=== PATIENT | male | born 1960 | race Caucasian/White ===

== ENCOUNTER 2017-01-11 10:55 | Emergency (ER) | payer OTHER ==
[~2017-01-11] VITALS: Ht 182.9 cm; Wt 94.0 kg
[~2017-01-11 10:55] MED LIST: DIPH25 PO; INTE200T2 OR; PARO20 PO; TRUVTAB2 OR; [UNRECOGNIZED DRUG - CODE]; [UNRECOGNIZED DRUG - CODE] PO
[2017-01-11 11:00] VITALS: BP 138/98; PULSE 128; RESP 16; O2SAT 98
[2017-01-11] MEDS ORDERED: ATOR20TA15 PO (11:13)
[2017-01-11] MEDS ORDERED: PAXI20TA PO (11:13)
[2017-01-11] MEDS ORDERED: ATRITAB PO (11:13)
--- NOTE | 2017-01-11 11:28 | PD ---
HPI Chief Complaint: Psychiatric Symptoms Time Seen by Provider: 11:28 Travel History International Travel<30 days: No Contact w/Intl Traveler<30days: No Traveled to known affect area: No History of Present Illness HPI 56-year-old male with a history of substance abuse and HIV is brought to the emergency department under Gu[employer] act for evaluation of substance abuse. Per the Guvera act report the patient's neighbors called the police as he makes a lot of noise with banging on the correa, moaning and groaning. Apparently when police arrived the patient admitted to [facility]. States he has been doing this for several years now. States he also drinks alcohol regularly, not daily. He denies any suicidal or homicidal ideations. Denies any attempts to harm himself. States that he does take antiretrovirals and follows up with Dr. Villafuerte for ID, unsure of his CD4 count but states his viral load is undetectable. He admits to a previous history of IV methamphetamine abuse, last used 6 months ago. Denies any medical complaints. Denies any chest pain, shortness of breath, lightheadedness, dizziness, nausea, vomiting, abdominal pain. No other complaints. PFSH Past Medical History High Cholesterol: Yes Diminished Hearing: No Hepatitis: Yes (HEP C cured) Immune Disorder: Yes (HIV) Integumentary: Yes (MRSA) Influenza Vaccination: No Social History Alcohol Use: Yes (occas) Tobacco Use: No Substance Use: Yes (hx of ivda; now huffer) Allergies-Medications (Allergen,Severity, Reaction): Coded Allergies: No Known Allergies (Verified , 01/11/17) Reported Meds & Prescriptions Reported Meds & Active Scripts Active Reported Paxil (Paroxetine HCl) 20 Mg Tab 20 Mg PO DAILY Atorvastatin (Atorvastatin Calcium) 20 Mg Tab 20 Mg PO HS Atripla (Jurrrlbmv-Vsirdknjgbuts-Rstymcref) 600-200-300 Mg Tab 1 Tab PO HS Take on an empty stomach. Review of Systems Except as stated in HPI: all other systems reviewed are Neg Physical Exam Narrative GENERAL: Well-nourished and well-developed pleasant male patient in no acute distress who is nontoxic appearing. SKIN: Warm and dry. HEAD: Normocephalic and atraumatic. EYES: No injection, drainage, or hyphema noted. PERRLA. EOMI. ENT: No nasal drainage noted. Oropharynx is clear. NECK: Supple and the trachea is midline. CARDIOVASCULAR: Regular rate and rhythm. RESPIRATORY: Breath sounds are equal bilaterally with no accessory muscle use, wheezing, rhonchi, or crackles. GASTROINTESTINAL: Abdomen is soft, non-tender, and nondistended. MUSCULOSKELETAL: No obvious deformities, swelling, cyanosis, or ecchymosis is present throughout the upper and lower extremities. Patient has full range of motion without any signs of neurovascular compromise. NEUROLOGICAL: Awake, alert, and oriented. Normal speech and gait. Cranial nerves are grossly intact. Data Data Last Documented VS Vital Signs Date Time Temp Pulse Resp B/P Pulse Ox O2 Delivery O2 Flow Rate FiO2 01/11/17 13:48 93 16 138/91 98 Room Air Orders Complete Blood Count With Diff (01/11/17 11:27) Comprehensive Metabolic Panel (01/11/17 11:27) Psych Screen (01/11/17 11:) Drug Screen, Random Urine (01/11/17 11:27) Alcohol (Ethanol) (01/11/17 11:27) Ecg Monitoring (01/11/17 11:27) Oximetry (01/11/17 11:27) Electrocardiogram (01/11/17 11:27) Labs Laboratory Tests Test 01/11/17 11:25 White Blood Count 7.2 TH/MM3 Red Blood Count 4.54 MIL/MM3 Hemoglobin 14.7 GM/DL Hematocrit 42.0 % Mean Corpuscular Volume 92.5 FL Mean Corpuscular Hemoglobin 32.4 PG Mean Corpuscular Hemoglobin 35.0 % Concent Red Cell Distribution Width 13.8 % Platelet Count 307 TH/MM3 Mean Platelet Volume 7.2 FL Neutrophils (%) (Auto) 52.7 % Lymphocytes (%) (Auto) 31.7 % Monocytes (%) (Auto) 10.3 % Eosinophils (%) (Auto) 4.9 % Basophils (%) (Auto) 0.4 % Neutrophils # (Auto) 3.8 TH/MM3 Lymphocytes # (Auto) 2.3 TH/MM3 Monocytes # (Auto) 0.7 TH/MM3 Eosinophils # (Auto) 0.3 TH/MM3 Basophils # (Auto) 0.0 TH/MM3 CBC Comment DIFF FINAL Differential Comment Sodium Level 140 MEQ/L Potassium Level 3.8 MEQ/L Chloride Level 108 MEQ/L Carbon Dioxide Level 22.8 MEQ/L Anion Gap 9 MEQ/L Blood Urea Nitrogen 12 MG/DL Creatinine 1.02 MG/DL Estimat Glomerular Filtration 76 ML/MIN Rate Random Glucose 110 MG/DL Calcium Level 9.3 MG/DL Total Bilirubin 0.2 MG/DL Aspartate Amino Transf 38 U/L (AST/SGOT) Alanine Aminotransferase 30 U/L (ALT/SGPT) Alkaline Phosphatase 90 U/L Total Protein 8.7 GM/DL Albumin 4.3 GM/DL Urine Opiates Screen NEG Urine Barbiturates Screen NEG Urine Amphetamines Screen NEG Urine Benzodiazepines Screen NEG Urine Cocaine Screen NEG Urine Cannabinoids Screen NEG Ethyl Alcohol Level 12 MG/DL MDM Medical Decision Making Medical Screen Exam Complete: Yes Emergency Medical Condition: Yes Differential Diagnosis Differential: Depression versus adjustment reaction versus anxiety versus PTSD versus psychosis NOS versus mood disorder NOS versus substance induced mood disorder versus ODD versus adjustment reaction versus schizophrenia versus bipolar disorder versus schizoaffective versus electrolyte abnormality Narrative Course Patient presents under a Pena act. Physical examination and vital signs are essentially unremarkable. Patient has no medical complaints to report. Psych screen has been ordered. The labs are unremarkable for any acute abnormalities. EKG shows sinus tachycardia with ventricular rate of 100 bpm, no chest elevations or depressions. The patient is medically cleared for psychiatric evaluation and disposition. Diagnosis Primary Impression: Substance abuse Brandi Campos Jan 11, 2017 11:28
[2017-01-11 11:55] LABS: AUTOMATED NEUTROPHIL # 3.8 TH/MM3 (1.8-7.7); BASOPHIL % 0.4 % (0.0-2.0); EOSINOPHIL # 0.3 TH/MM3 (0-0.4); EOSINOPHIL % 4.9 % (0.0-4.0); HEMO FLAGS DIFF FINAL; LYMPH % 31.7 % (9.0-44.0); LYMPHOCYTE # 2.3 TH/MM3 (1.0-4.8); MEAN CELL VOLUME 92.5 FL (80.0-100.0); MEAN CORPUSCULAR HEMOGLOBIN 32.4 PG (27.0-34.0); MONO % 10.3 % (0.0-8.0); NEUT % 52.7 % (16.0-70.0); PLATELET COUNT 307 TH/MM3 (150-450); RED BLOOD COUNT 4.54 MIL/MM3 (4.50-5.90); RED CELL DISTRIBUTION WIDTH 13.8 % (11.6-17.2); WHITE BLOOD COUNT 7.2 TH/MM3 (4.0-11.0)
[2017-01-11 12:06] LABS: AMPHETAMINE, URINE NEG (NEG); BARBITURATES, URINE NEG (NEG); COCAINE, URINE NEG (NEG)
[2017-01-11 12:11] LABS: ALT (GPT) 30 U/L (12-78); AST (GOT) 38 U/L (15-37); BICARBONATE 22.8 MEQ/L (21.0-32.0); BLOOD UREA NITROGEN 12 MG/DL (7-18); CHLORIDE 108 MEQ/L (98-107); GLOMERULAR FILTRATION RATE 76 ML/MIN (>89)
[2017-01-11 12:14] LABS: ALKALINE PHOSPHATASE 90 U/L (45-117); TOTAL BILIRUBIN ADULT 0.2 MG/DL (0.2-1.0)
[2017-01-11 12:29] LABS: ANION GAP 9 MEQ/L (5-15); POTASSIUM 3.8 MEQ/L (3.5-5.1)
[2017-01-11 12:34] LABS: SODIUM (NA) 140 MEQ/L (136-145)
[2017-01-11 13:48] VITALS: BP 138/91; PULSE 93; RESP 16; O2SAT 98
[2017-01-11 15:29] VITALS: BP 170/103; PULSE 98; RESP 18; TEMP 98; O2SAT 100
--- NOTE | 2017-01-11 18:45 | PD.CONS ---
Provisional Diagnosis Admission Date Union I. Alcohol induced mood disorder, alcohol use disorder, Union II. deferred Union III. HIV Union IV. Poor social and family support Union V. 57 History of Present Illness Service Psychiatry Consult Requested By Primary Care Physician No Primary Care Physician HPI The patient is a 56-year-old man, domiciled alone, unemployed, supported bu [facility], with PPHx of depression, anxiety, amphetamine and alcohol use disorder,no psychiatric hospitalizations, no SAs, medical history of HIV on retrovirals, undetectable VL, who is brought to the emergency department under [employer] act for evaluation of substance abuse. Per the [employer] act report the patient's neighbors called the police as he makes a lot of noise with banging on the correa, moaning and groaning. Apparently when police arrived the patient admitted to [facility] also admitted being drinking alcohol. States he has been doing this for several years now in order to have better orgasm with masturbation. Patient says he feels ashamed and never thought he was bothering her neighbors, but he understand why the call the police. Patient is clinically sober, he denies depression, anxiety, deloris and perceptual disturbances. He denies SI/HI/VH/AH. He is fully orientedX3. He states he also drinks alcohol regularly, not daily, abused amphetamines in the past. Review of Systems Constitutional: DENIES: Diaphoretic episodes, Fatigue, Fever, Weight gain, Weight loss, Chills, Dizziness, Change in appetite, Night Sweats Endocrine: DENIES: Heat/cold intolerance, Polydipsia, Polyuria, Polyphagia Eyes: DENIES: Blurred vision, Diplopia, Eye inflammation, Eye pain, Vision loss , Photosensitivity, Double Vision Ears, nose, mouth, throat: DENIES: Tinnitus, Hearing loss, Vertigo, Nasal discharge, Oral lesions, Throat pain, Hoarseness, Ear Pain, Running Nose, Epistaxis, Sinus Pain, Toothache, Odynophagia Respiratory: DENIES: Apneas, Cough, Snoring, Wheezing, Hemoptysis, Sputum production, Shortness of breath Cardiovascular: DENIES: Chest pain, Palpitations, Syncope, Dyspnea on Exertion , PND, Lower Extremity Edema, Orthopnea, Claudication Gastrointestinal: DENIES: Abdominal pain, Black stools, Bloody stools, Constipation, Diarrhea, Nausea, Vomiting, Difficulty Swallowing, Anorexia Musculoskeletal: DENIES: Joint pain, Muscle aches, Stiffness, Joint Swelling, Back pain, Neck pain Hematologic/lymphatic: DENIES: Bruising, Lymphadenopathy Immunologic/allergic: DENIES: Eczema, Urticaria Neurologic: DENIES: Abnormal gait, Headache, Localized weakness, Paresthesias, Seizures, Speech Problems, Tremor, Poor Balance Psychiatric: DENIES: Anxiety, Confusion, Mood changes, Depression, Hallucinations, Agitation, Suicidal Ideation, Homicidal Ideation, Delusions Past Family Social History Coded Allergies: No Known Allergies (Verified , 01/11/17) Reported Medications Paroxetine (Paxil)20 Mg Tab20 Mg PO DAILY #0 TAB Ref 0 01/11/17 Atorvastatin 20 Mg Tab20 Mg PO HS #0 TAB Ref 0 01/11/17 Sycvohovb-Leyytrorsspdn-Mvolxazvd (Atripla)600-200-300 Mg Tab1 Tab PO HS #0 TAB Ref 0 Take on an empty stomach. 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 [employer] Patient highest level of education is HS Physical Exam No EPS, no withdrawal, no tremors, agitation, psychomotor retardation present Vital Signs Vital Signs Date Time Temp Pulse Resp B/P Pulse Ox O2 Delivery O2 Flow Rate FiO2 01/11/17 15:29 98.0 98 18 170/103 100 Room Air Mental Status Examination Appearance man, good hygiene, [facility], calm and cooperative Speech: Unremarkable Orientation: x3 Memory: Unremarkable Thought Process: Logical Thought Content: Unremarkable Hallucination Type: None Attention and Concentration: Good Suicidal Ideation: No Previous Suicide Attempts: No Homicidal Ideation: No Previous Homicide Attempts: No Judgement: WNL Affect: Good Affect if Inappropriate: Flat Mood: Appropriate Motor Activity: Normal gait Assessment & Plan Problem List: (1) Alcohol abuse with alcohol-induced mood disorder Assessment & Plan: The patient does not present any evidence of depression, anxiety, deloris or psychosis, he is clinically sober, calm, cooperative, logical , coherent and relevant. He denies SI, HI, VH, AH. He does not meet criteria for psychiatric admission at this moment. His disruptive and bizarre behavior at home is mostly related with alcohol and illegal substances use and not to a major psychiatric illness decompensation. Support and motivation provided. Pena act will be lifted. ICD Code: F10.14 Assessment & Plan Estimated LOS: days Rudy Can MD Jan 11, 2017 18:45
--- NOTE | 2017-01-12 16:23 | EKG ---
Date Performed: 01/11/2017 Time Performed: 11:58:06 PTAGE: 56 years EKG: SINUS TACHYCARDIA ABNORMAL RHYTHM ECG NO PREVIOUS TRACING DOCTOR: Anthony Lane Interpretating Date/Time 01/12/2017 16:21:33
== END 2017-01-11 17:22 | disposition home or self-care (01) ==
LOC: NEPA 10:55 → NEPJ 17:22
DX: F19.10 Other psychoactive substance abuse, uncomplicated (principal); B20 Human immunodeficiency virus [HIV] disease; Z86.14 Personal history of Methicillin resistant Staphylococcus aureus infection
CPT/HCPCS: 80053; 80307; 85025; 93005

== ENCOUNTER 2017-01-16 12:54 | Emergency (ER) | payer SELFPAY ==
[~2017-01-16 12:54] MED LIST changes: +ATOR20TA15 PO; +ATRITAB PO; -DIPH25 PO; -INTE200T2 OR; -PARO20 PO; +PAXI20TA PO; -TRUVTAB2 OR; -[UNRECOGNIZED DRUG - CODE]; -[UNRECOGNIZED DRUG - CODE] PO
[2017-01-16 13:04] VITALS: BP 161/103; PULSE 73; RESP 19; O2SAT 99
--- NOTE | 2017-01-16 13:16 | PD ---
HPI Chief Complaint: Psychiatric Symptoms Time Seen by Provider: 13:09 Travel History International Travel<30 days: No Contact w/Intl Traveler<30days: No Traveled to known affect area: No History of Present Illness HPI 56-year-old male that presents to the ED for evaluation of psychiatric illness. Patient comes here under Pena acted by police. Per patient she was using compressed air to get high and apparently he was making nonsensical statements and screaming and saying things that weren't there so that may were called the police and they Pena acted him. Per patient he has done this before. Patient came here actually just a week ago for evaluation of similar. He has a history of HIV and hep C both of which are being treated with hep C already been here. Per patient he does not know his CD4 count as well as his viral load but he's tells me that he is undetectable and she follows with ID constantly. He denies any medical complaint. No chest pain or shortness of breath. He has no history of schizophrenia or any other disorder but he does tell me he has a history of substance abuse in the past and has been in [facility] for it as well as he continues to drink alcohol and states that he is an alcoholic. He denies any other medical issues at this time. He denies any falls or injuries. Symptoms appear to be moderate. Denies any suicidal or homicidal ideation to me. No other complaints reported. This appears to be worsening for the past couple days. PFSH Past Medical History High Cholesterol: Yes Diminished Hearing: No Hepatitis: Yes (HEP C cured) Immune Disorder: Yes (HIV) Integumentary: Yes (MRSA) Social History Alcohol Use: Yes (occas) Tobacco Use: No Substance Use: Yes (etoh yesterday; 3x/week (approx. 3-5 drinks)) Allergies-Medications (Allergen,Severity, Reaction): Coded Allergies: No Known Allergies (Verified , 01/11/17) Reported Meds & Prescriptions Reported Meds & Active Scripts Active Reported Paxil (Paroxetine HCl) 20 Mg Tab 20 Mg PO DAILY Atorvastatin (Atorvastatin Calcium) 20 Mg Tab 20 Mg PO HS Atripla (Pqedczjdx-Fveujdxluuwwl-Mvrhemher) 600-200-300 Mg Tab 1 Tab PO HS Take on an empty stomach. Review of Systems Except as stated in HPI: all other systems reviewed are Neg Physical Exam Narrative GENERAL: SKIN: Warm and dry. HEAD: Atraumatic. Normocephalic. EYES: Pupils equal and round. No scleral icterus. No injection or drainage. ENT: No nasal bleeding or discharge. Mucous membranes pink and moist. Tongue is midline. No uvular deviation. NECK: Trachea midline. No JVD. CARDIOVASCULAR: Regular rate and rhythm. No murmurs, S3, S4. RESPIRATORY: No accessory muscle use. Clear to auscultation. Breath sounds equal bilaterally. GASTROINTESTINAL: Abdomen soft, non-tender, nondistended. Hepatic and splenic margins not palpable. MUSCULOSKELETAL: Extremities without clubbing, cyanosis, or edema. No obvious deformities. Full range of motion of the upper and lower extremities bilaterally. 2+ pulses bilaterally. NEUROLOGICAL: Awake and alert. No obvious cranial nerve deficits. Motor grossly within normal limits. Five out of 5 muscle strength in the arms and legs. Normal speech. PSYCHIATRIC: Appropriate mood and affect; insight and judgment normal. Data Data Last Documented VS Vital Signs Date Time Temp Pulse Resp B/P Pulse Ox O2 Delivery O2 Flow Rate FiO2 01/16/17 13:04 73 19 161/103 99 Room Air Orders Complete Blood Count With Diff (01/16/17 12:58) Comprehensive Metabolic Panel (01/16/17 12:58) Psych Screen (01/16/17 12:58) Drug Screen, Random Urine (01/16/17 12:58) Alcohol (Ethanol) (01/16/17 12:58) Salicylates (Aspirin) (01/16/17 12:58) Tylenol (Acetaminophen) (01/16/17 12:58) Labs Laboratory Tests Test 01/16/17 01/16/17 12:50 14:00 White Blood Count 5.8 TH/MM3 Red Blood Count 4.03 MIL/MM3 Hemoglobin 12.9 GM/DL Hematocrit 37.4 % Mean Corpuscular Volume 92.8 FL Mean Corpuscular Hemoglobin 31.9 PG Mean Corpuscular Hemoglobin 34.4 % Concent Red Cell Distribution Width 13.9 % Platelet Count 266 TH/MM3 Mean Platelet Volume 7.7 FL Neutrophils (%) (Auto) 59.9 % Lymphocytes (%) (Auto) 26.5 % Monocytes (%) (Auto) 8.9 % Eosinophils (%) (Auto) 4.3 % Basophils (%) (Auto) 0.4 % Neutrophils # (Auto) 3.5 TH/MM3 Lymphocytes # (Auto) 1.5 TH/MM3 Monocytes # (Auto) 0.5 TH/MM3 Eosinophils # (Auto) 0.2 TH/MM3 Basophils # (Auto) 0.0 TH/MM3 CBC Comment DIFF FINAL Differential Comment Total Bilirubin 0.2 MG/DL Alanine Aminotransferase 28 U/L (ALT/SGPT) Alkaline Phosphatase 91 U/L Total Protein 8.7 GM/DL Salicylates Level LESS THAN 1.7 MG/DL Urine Opiates Screen NEG Urine Barbiturates Screen NEG Urine Amphetamines Screen NEG Urine Benzodiazepines Screen NEG Urine Cocaine Screen NEG Urine Cannabinoids Screen NEG MDM Medical Decision Making Medical Screen Exam Complete: Yes Emergency Medical Condition: Yes Medical Record Reviewed: Yes Interpretation(s) CBC & BMP Diagram 01/16/17 12:50 tox negative Differential Diagnosis Depression versus suicidal ideation versus anxiety versus adjustment disorder versus mood disorder versus bipolar disorder versus schizophrenia versus paranoid disorder versus psychosis versus substance abuse versus alcohol abuse versus alcohol induced psychosis versus homicidality addition versus cutting versus personality disorder Narrative Course 56-year-old male that presents to the ED that presents for evaluation of psych. Patient was properly examined and was found to have signs and symptoms consistent with psychiatric illness and substance abuse. No sign of acute medical distress. Diagnosis Primary Impression: Substance abuse Sandor Caldwell Jan 16, 2017 13:16
[2017-01-16 14:26] LABS: AUTOMATED NEUTROPHIL # 3.5 TH/MM3 (1.8-7.7); BASOPHIL % 0.4 % (0.0-2.0); EOSINOPHIL # 0.2 TH/MM3 (0-0.4); EOSINOPHIL % 4.3 % (0.0-4.0); HEMATOCRIT 37.4 % (39.0-51.0); HEMO FLAGS DIFF FINAL; LYMPH % 26.5 % (9.0-44.0); LYMPHOCYTE # 1.5 TH/MM3 (1.0-4.8); MEAN CELL VOLUME 92.8 FL (80.0-100.0); MEAN CORPUSCULAR HEMOGLOBIN 31.9 PG (27.0-34.0); MEAN CORPUSCULAR HGB CONC 34.4 % (32.0-36.0); MONO % 8.9 % (0.0-8.0); NEUT % 59.9 % (16.0-70.0); PLATELET COUNT 266 TH/MM3 (150-450); RED BLOOD COUNT 4.03 MIL/MM3 (4.50-5.90); RED CELL DISTRIBUTION WIDTH 13.9 % (11.6-17.2); WHITE BLOOD COUNT 5.8 TH/MM3 (4.0-11.0)
[2017-01-16 14:39] LABS: AMPHETAMINE, URINE NEG (NEG); BARBITURATES, URINE NEG (NEG); COCAINE, URINE NEG (NEG)
[2017-01-16 14:51] LABS: ALKALINE PHOSPHATASE 91 U/L (45-117); ALT (GPT) 28 U/L (12-78); TOTAL BILIRUBIN ADULT 0.2 MG/DL (0.2-1.0)
[2017-01-16 15:05] LABS: ACETAMINOPHEN LESS THAN 2.0 MCG/ML (10.0-30.0); ANION GAP 9 MEQ/L (5-15); AST (GOT) 32 U/L (15-37); BICARBONATE 25.4 MEQ/L (21.0-32.0); BLOOD UREA NITROGEN 14 MG/DL (7-18); CHLORIDE 107 MEQ/L (98-107); GLOMERULAR FILTRATION RATE 85 ML/MIN (>89); POTASSIUM 4.3 MEQ/L (3.5-5.1); SODIUM (NA) 141 MEQ/L (136-145)
[2017-01-16 18:25] VITALS: BP 160/84; PULSE 89; RESP 20; TEMP 98.3; O2SAT 99
[2017-01-16 22:52] VITALS: BP 134/78; PULSE 74; RESP 18; O2SAT 96
[2017-01-17 02:25] VITALS: BP 133/66; PULSE 78; RESP 18; O2SAT 98
[2017-01-17 06:00] VITALS: BP 123/66; PULSE 78; RESP 19; O2SAT 97
--- NOTE | 2017-01-17 08:05 | MB ---
cc: DELON ONOFRE DATE OF CONSULTATION 01/17/2017 PHYSICIAN REQUESTING CONSULTATION Emergency department. REASON FOR CONSULTATION Pena Act. HISTORY OF PRESENT ILLNESS Mr. Corona is a 56-year-old male with a history of alcohol use disorder who presents under a Pena Act from the [place] [employer] alleging that the patient was abusing inhalants and was heard moaning by someone in the home and police were called. Reviewing the electronic medical record, I see the patient was seen in consultation by Dr. Can on January 11 under pretty much the same circumstances. He lifted the Pena Act at that time. The patient is seen and examined. Chart reviewed. Case discussed with nurse in the J-pod. There has been no behavioral disturbance, nor any evidence of suicidality or homicidality during observation in the J-pod. On my examination this morning, the patient is clinically sober. He is calm and pleasant on examination. He reports, as he did to Dr. Can, that he uses the duster as a sexual aid to heighten the effect of masturbation. He says that he has been doing this for about the past 9 months. His alcohol use continues, although significantly attenuated verses previously. He admits to some mild low mood, but he is quite hopeful about the future and future oriented with several near and long-term goals. I can elicit no depressive or hypomanic/manic symptoms otherwise. He denies any suicidal or homicidal ideation, intent or plan on direct questioning. He denies any audiovisual hallucinations and I can elicit no delusional beliefs. The remainder of the psychiatric ROS is negative. The patient is requesting discharge from the psychiatric emergency room. PAST PSYCHIATRIC HISTORY The patient denies any history of psychiatric diagnosis other than the substance use issues. He is not currently under the care of a psychiatrist. He does see a chemical dependency counselor at a facility called [facility]. He denies any history of psychiatric admissions or suicide attempts. FAMILY HISTORY The patient denies any family history of serious mental illness or suicide. He does report that his mother and brother both struggle with alcohol use issues. His father had Alzheimer's disease. CHEMICAL DEPENDENCY HISTORY The patient denies reports that he has been drinking since 13 years old. He is not presently a daily drinker and notes that he has had a fifth of liquor in his home for 10 days that is still not empty. He is active an AA but does not have a sponsor although he is planning on getting one. He says that he has been abusing the duster for about the last 9 months. SOCIAL HISTORY The patient reports that he lives alone and owns his home outright. He is hoping to get a dog soon. 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 He has no children. He endorses a history of drug crime but denies any history of violent crime. Denies any access to guns or firearms. He is a volunteer at the [employer] and says that he has met two Mormons as well as a Church there and he is exploring various holiness faiths at this time. PAST MEDICAL HISTORY History of HIV. Hyperlipidemia. Reportedly and compliant with antiretrovirals and other medications. REVIEW OF SYSTEMS No reported headache, vision or hearing changes, chest pain, shortness of breath, bowel or bladder issues. No other physical complaints. PHYSICAL EXAMINATION VITAL SIGNS: Temperature is 98.3, pulse 78, respirations 19, blood pressure 123/66, pulse oximetry 97% on room air. Physical examination was completed by the ED provider and the patient was medically cleared. On my examination today, the patient appears to be well-nourished and well-developed and in no acute physical distress. No motor abnormalities noted. No signs of GABAergic or other withdrawal noted. Labs and vital signs reviewed. LABORATORIES REVIEWED CBC is significant for mild anemia at 12.9. CMP is significant for mildly decreased GFR. Toxicology is negative. Alcohol level undetectable. MENTAL STATUS EXAM The patient is hospital gown. He is well great groomed and certainly maintaining basic hygiene. He is awake, alert and oriented x 3. No evidence of delirium. No motor abnormalities noted. Speech is within normal limits for rate, tone and volume. Language and fund of knowledge seem at least average. Mood is fair to slightly depressed and affect remains full and reactive. Thought process linear. No loosening of associations. No evident delusions. Denies audiovisual hallucinations. Denies suicidal or homicidal ideation, intent or plan. Insight and judgment are fair at best, particularly with respect to the substance use issues. ASSESSMENT AND PLAN 1. Inhalant abuse, F18.10 2. Alcohol dependence, F10.20 This is a 56-year-old male with psychiatric history as detailed above who presents under Pena Act. On my examination today, the patient is clinically sober. He denies any suicidal or homicidal ideation. He appears to be attending to his basic needs. I can detect no severely unstable mood, anxiety or psychotic disorder in this patient at this time. Putting the above information together, I [employer] the patient does not presently meet Pena Act criteria. I have lifted the Pena Act. The patient is requesting discharge from the ED today. I have recommended that he allow us to place him in a drug rehabilitation program, but he has declined. He plans to redouble his efforts in AA on an outpatient basis. I have encouraged him in his goal of seeking sobriety. I have counseled the patient regarding warning signs for need to return to the psychiatric emergency room as part of a general safety plan. The patient is otherwise psychiatrically cleared for discharge from the ED. Case discussed with RN. Thank you very much for this consultation. Delon Onofre DC/SABINO /7:31 AM /7:50 AM GOLD
== END 2017-01-17 08:20 | disposition home or self-care (01) ==
LOC: NEPC 12:54 → NEPJ 01-17 08:20
DX: F19.10 Other psychoactive substance abuse, uncomplicated (principal); F18.10 Inhalant abuse, uncomplicated; F10.20 Alcohol dependence, uncomplicated; E78.00 Pure hypercholesterolemia, unspecified; Z21 Asymptomatic human immunodeficiency virus [HIV] infection status; Z86.19 Personal history of other infectious and parasitic diseases; Z86.14 Personal history of Methicillin resistant Staphylococcus aureus infection
CPT/HCPCS: 80053; 80307; 85025; 99284